=== PATIENT | male | born 1985 | race Caucasian/White ===

== ENCOUNTER 2019-04-18 21:03 | Emergency (ER) | payer SELFPAY ==
[~2019-04-18] VITALS: Ht 185.4 cm; Wt 131.5 kg
[2019-04-18 21:24] VITALS: BP 140/90
--- NOTE | 2019-04-18 21:24 | NUR ---
PT TAKEN TO BED 7
--- NOTE | 2019-04-18 21:30 | NUR ---
PT BIB FRIEND C/O OF LACERATION. PT STATES CUTTING WOOD AT HOME; LACERATION TO RT FOREARM 30 MINUTES AGO. BLEEDING CONTROLLED; MILD REDNESS, NO SWELLING AT THIS TIME; STATES 5/10 PAIN TO SIGHT. DENIES N/V. TETANUS VACCINE LAST JANUARY 2019. PT ACTING APPROPRIATLY, SPEAKING IN CLEAR AND COMPLETE SENTENCES. PMH: DENIES
--- NOTE | 2019-04-18 21:45 | NUR ---
PT WOUND IRRIGATED WITH STERILE WATER
--- NOTE | 2019-04-18 21:54 | NUR ---
PA WITH PT
[2019-04-18] MEDS ORDERED: LIDOCAINE 2% 1000 MG/50 ML VIAL INJ ONE ×2 (21:55→22:03)
[2019-04-18] MEDS ORDERED: BACITRACIN OINT 500 UNITS/GM PKT TP ONE ×2 (22:25→22:31)
--- NOTE | 2019-04-18 22:32 | NUR ---
PT WOUND COVERED WITH NON ADHERENT DRESSING AND WRAPPED WITH JUANJOSE WRAP. +CSM
--- NOTE | 2019-04-18 22:33 | NUR ---
PT R ARM PLACED IN SLING SIZE LARGE
--- NOTE | 2019-04-18 22:45 | NUR ---
JUANJOSE WRAPPING APPLIED AND RIGHT ARM PLACED IN SLING. RADIAL PULSES WNL. COLOR WNL, AROM OF EXTREMITY.
--- NOTE | 2019-04-18 22:47 | NUR ---
Patient discharged with v/s stable. Patient acting appropriatly, states pain has decreased to 3/10. Written and verbal after care instructions given and explained. Patient alert, oriented and verbalized understanding of instructions. Ambulatory with steady gait. All questions addressed prior to discharge. ID band removed. Patient advised to follow up with PMD. Rx of Keflex, and Motrin given. Patient educated on indication of medication including possible reaction and side effects. Opportunity to ask questions provided and answered.
[2019-04-18 23:00] VITALS: BP 138/89
== END 2019-04-18 22:47 | disposition home or self-care (01) ==
LOC: MED 21:03
DX: S51.811A Laceration without foreign body of right forearm, initial encounter (principal); W26.8XXA Contact with other sharp object(s), not elsewhere classified, initial encounter; Y93.89 Activity, other specified; Y92.89 Other specified places as the place of occurrence of the external cause; Y99.8 Other external cause status
CPT/HCPCS: 12002; 99283; J2001

== ENCOUNTER 2019-04-27 11:38 | Emergency (ER) | payer SELFPAY ==
[~2019-04-27] VITALS: Ht 182.9 cm; Wt 136.5 kg
[2019-04-27 11:53] VITALS: BP 160/103
--- NOTE | 2019-04-27 11:54 | NUR ---
PT AMBULATED TO ED BED 05
[2019-04-27] MEDS ORDERED: LIDOCAINE/PRILOCAINE 2.5% 5 GM TUBE TP ONE (12:15)
--- NOTE | 2019-04-27 12:40 | NUR ---
PT SEEN LAST WEDNESDAY AND HAD MODESTO PLACED TO RIGHT FOREARM. PT STATES HE TRIED GOING TO CLINIC TO HAVE MODESTO REMOVED TODAY BUT CLINIC REFERRED HIM HERE SINCE THE REMOVAL WAS PAINFUL FOR PATIENT. DENIES N/V/D; SKIN IS PINK/WARM/DRY; AAOX4 WITH EVEN AND STEADY GAIT; LUNGS CLEAR BL; HR EVEN AND REGULAR; PT DENIES ANY FEVER, CP, SOB, OR COUGH AT THIS TIME; PATIENT STATES PAIN OF 0/10 AT THIS TIME; VSS; PATIENT POSITIONED FOR COMFORT; HOB ELEVATED; BEDRAILS UP X2; BED DOWN. ER MD MADE AWARE OF PT STATUS.
[2019-04-27 13:16] VITALS: BP 118/67
== END 2019-04-27 13:16 | disposition home or self-care (01) ==
LOC: MED 11:38
DX: S51.811D Laceration without foreign body of right forearm, subsequent encounter (principal); X58.XXXD Exposure to other specified factors, subsequent encounter
CPT/HCPCS: 99283

== ENCOUNTER 2024-05-09 21:55 | Emergency (ER) | payer SELFPAY ==
[~2024-05-09] VITALS: Ht 182.9 cm; Wt 170.1 kg
[2024-05-09 22:03] VITALS: BP 119/92; PULSE 76; RESP 14; TEMP 97.9; O2SAT 96
[2024-05-09 22:24] VITALS: O2SAT 96
[2024-05-09 22:28] LABS: BASOPHILS # (AUTO) 0.1 K/uL (0.00-0.22); BASOPHILS % (AUTO) 0.6 % (0.0-2.0); EOSINOPHILS # (AUTO) 0.4 K/uL (0-0.4); EOSINOPHILS % (AUTO) 4.2 % (0.0-4.0); HEMATOCRIT 41.6 % (36-52); LYMPHOCYTES % (AUTO) 23.3 % (20.5-51.1); MEAN CORPUSCULAR HEMOGLOBIN 30 pg (27-31); MEAN CORPUSCULAR HGB CONC 34 g/dL (33-37); MEAN CORPUSCULAR VOLUME 89.6 fL (80-94); MONOCYTES # (AUTO) 0.5 K/uL (0.8-1.0); MONOCYTES % (AUTO) 6.3 % (1.7-9.3); NEUTROPHILS # (AUTO) 5.6 K/uL (1.8-7.7); NEUTROPHILS % (AUTO) 65.6 % (42.2-75.2); PLATELET COUNT (AUTO) 311 K/uL (140-450); RED BLOOD CELL COUNT(AUTO) 4.64 MIL/uL (4.20-6.10); RED CELL DISTRIBUTION WIDTH 14.8 % (11.6-13.7); WHITE BLOOD COUNT (AUTO) 8.6 K/uL (4.8-10.8)
[2024-05-09 22:49] LABS: ANION GAP 10.5 (8-16); CALCIUM 8.6 mg/dL (8.5-10.1); CARBON DIOXIDE 31.4 mmol/L (21-32); CREATININE 0.7 mg/dL (0.6-1.3); POTASSIUM 3.9 mmol/L (3.5-5.1)
[2024-05-09 22:51] LABS: FREE T4 (FREE THYROXINE) 0.82 ng/dL (0.76-1.46)
[2024-05-09 22:54] LABS: ALANINE AMINOTRANSFERASE 40 U/L (12-78); ALBUMIN 3.4 g/dL (3.4-5.0); ALCOHOL, BLOOD < 3 mg/dL (<10); ALKALINE PHOSPHATASE 121 U/L (50-136); ASPARTATE AMINOTRANSFERASE 19 U/L (15-37); BILIRUBIN,DIRECT 0.1 mg/dL (0.0-0.3); THYROID STIMULATING HORMONE 3.25 uIU/mL (0.34-3.74); TOTAL BILIRUBIN 0.3 mg/dL (0.0-1.0); TOTAL PROTEIN, SERUM 7.4 g/dL (6.4-8.2)
[2024-05-09 23:09] LABS: FLU A ANTIGEN negative (NEGATIVE); FLU B ANTIGEN NEGATIVE (NEGATIVE)
[2024-05-10 00:12] VITALS: BP 121/73; PULSE 80; RESP 13; O2SAT 93
== END 2024-05-10 00:12 | disposition home or self-care (01) ==
LOC: MED 21:55
DX: R53.1 Weakness (principal); J18.9 Pneumonia, unspecified organism; Z20.822 Contact with and (suspected) exposure to COVID-19; Z79.899 Other long term (current) drug therapy
CPT/HCPCS: 36415; 71045; 80048; 80076; 82140; 83880; 84439; 84443; 84484; 85025; 87426; 87804; 93005; 99285; G0482